=== PATIENT | female | born 1940 | race Caucasian/White ===

== ENCOUNTER 2021-01-19 05:53 | Emergency (ER) | payer MEDICARE, OTHER, SELFPAY ==
--- NOTE | ~2021-01-19 | CT_ITS ---
EXAMINATION: CT abdomen pelvis wo con EXAM DATE: 01/19/2021 06:58 INDICATION: Left flank pain. TECHNIQUE: Spiral CT of the abdomen and pelvis was performed without contrast. Axial, coronal and sag ittal images were reviewed. The dose-length product (DLP) for this examination was 848.12 mGy-cm. T he exposure was tailored according to patient size (auto mA exposure control), and iterative reconstr uction (ASIR) was used as additional dose reduction technique. Prior study from 2009 is not retrievin g at this time. FINDINGS: There is no nephrolithiasis or hydronephrosis. Mild bilateral renal cortical thinning. The uterus is unremarkable. The bladder is unremarkable. The liver, spleen, adrenal glands and pancrea s are unremarkable. Gallbladder is unremarkable. No biliary obstruction. There is no retroperitone al or pelvic lymphadenopathy. There is moderate scattered arteriosclerotic disease. There is mild a neurysmal mid abdominal aorta up to 3.3 cm. Mild ectasia of the common iliac arteries. The appendix is normal. There is mild sigmoid colonic diverticulosis. There is no adjacent inflammat ory change to suggest diverticulitis. There is colonic anastomosis site at the splenic flexure. The stomach and small bowel are unremarkable. There is expected amount of colonic stool. No free intr aperitoneal gas. There is cardiomegaly and pulmonary vascular congestion. Some prominent basilar re ticulation probably mild pulmonary edema. Mild emphysema. There are no pericardial or pleural effusio ns. There are bibasilar linear opacities, subsegmental atelectasis. The bones are unremarkable. IMPRESSION: 1. No nephrolithiasis, hydronephrosis or acute intra-abdominal findings. 2. Mildly aneurysmal abdominal aorta. 3. Cardiomegaly, congestion. Possible mild pulmonary edema. 4. Mild emphysema. Reviewed, dictated and finalized at location A.
[2021-01-19 05:59] VITALS: BP 192/165; PULSE 92; RESP 16; TEMP 36.4; O2SAT 98
--- NOTE | 2021-01-19 06:28 | ED.GENADULT ---
HPI - General Adult General Chief complaint: Abdominal Pain Stated complaint: back/abdominal pain, nausea Time Seen by Provider: 01/19/21 06:19 History of Present Illness HPI narrative: Patient 81-year-old female that presents the emergency department with chief complaint of left flank pain. Patient reports that she has history of kidney stones in the past and started having severe pain in the left flank that radiates to the left lower quadrant. Patient states the pain is sharp reports is not improved by anything reports is worse whenever she gets up and walks around patient reports has had nausea with this reports has had no vomiting denies diarrhea denies fever. Related Data Home Medications Medication Instructions Recorded Confirmed benzonatate 200 mg capsule 200 mg PO TID 02/23/19 09/21/19 acetaminophen 500 mg tablet 500 mg PO Q4H PRN 03/10/19 09/21/19 cholecalciferol (vitamin D3) 1,250 50,000 unit PO WEEKLY 05/19/19 09/21/19 mcg (50,000 unit) tablet meloxicam 15 mg tablet 15 mg PO DAILY PRN 05/19/19 09/21/19 Allergies Allergy/AdvReac Type Severity Reaction Status Date / Time No Known Drug Allergies Allergy Unknown Verified 04/30/19 16:53 Review of Systems Review of Systems: A 10 system review of systems was completed on the patient and is negative except for what is stated in the HPI. Nursing and ancillary documentation was reviewed. [facility] Past Medical History Medical History Acute non-recurrent maxillary sinusitis Chronic right hip pain Contusion of left foot Family History Family History Father Diabetes mellitus Mother Family history of cardiovascular disease, Onset Age: 71 Social History Social History Smoking status: Never smoker Alcohol intake: never Exam Narrative: GENERAL: Well-appearing, well-nourished, and in no acute distress. HEAD: Normocephalic, atraumatic. EYES: PERRLA and EOMI. ENT: Nares clear, no rhinorrhea or epistaxis. Mucous membranes moist. NECK: Supple. CHEST: Clear to auscultation. No respiratory distress. HEART: Regular rate and rhythm. No murmur heard. Normal peripheral pulses. ABDOMEN: Soft, nontender, nondistended, normal active bowel sounds. EXTREMITIES: Normal range of motion. No edema. SKIN: Warm, dry, no rash. NEURO: No focal deficits. Alert and oriented x3. PSYCH: Normal mood and affect. Course Vital Signs Vital signs: Vital Signs Temperature 36.4 C L 01/19/21 05:59 Pulse Rate 92 01/19/21 05:59 Respiratory Rate 16 01/19/21 05:59 Blood Pressure 192/165 H 01/19/21 05:59 Pulse Oximetry 98 01/19/21 05:59 Temperature 36.4 C L 01/19/21 05:59 Pulse Rate 92 01/19/21 05:59 Respiratory Rate 16 01/19/21 05:59 Blood Pressure 192/165 H 01/19/21 05:59 Pulse Oximetry 98 01/19/21 05:59 Medical Decision Making Vital Signs Vital Signs: Vital Signs Temperature 36.4 C L 01/19/21 05:59 Pulse Rate 92 01/19/21 05:59 Respiratory Rate 16 01/19/21 05:59 Blood Pressure 192/165 H 01/19/21 05:59 Pulse Oximetry 98 01/19/21 05:59 Temperature 36.4 C L 01/19/21 05:59 Pulse Rate 92 01/19/21 05:59 Respiratory Rate 16 01/19/21 05:59 Blood Pressure 192/165 H 01/19/21 05:59 Pulse Oximetry 98 01/19/21 05:59 Lab Data Result diagrams: 01/19/21 06:28 01/19/21 06:28 Labs: Lab Results 01/19/21 01/19/21 01/19/21 Range/Units 06:28 06:28 06:28 WBC 8.1 (4.5-10.0) K/mm3 RBC 4.46 (4.2-5.4) M/mm3 Hgb 14.5 (12.0-15.0) g/dL Hct 43.6 (37.0-47.0) % MCV 97.8 (80-100) fl MCH 32.5 (26-34) pg MCHC 33.3 (32-36) g/dl RDW 12.8 (11.5-14.5) % Plt Count 220 (150-375) k/mm3 MPV 12.6 H (7.4-10.4) fl Immature Gran % (Auto) 0.9 H (0-0.5) % Neut
[2021-01-19 06:42] LABS: Basophils Absolute Auto 0.1 K/mm3 (0.0-0.1); Basophils Percent Auto 0.6 % (0.2-1.2); Eosinophils Absolute Auto 0.1 K/mm3 (0-0.3); Eosinophils Percent Auto 1.1 % (0-4.4); Hematocrit 43.6 % (37.0-47.0); Hemoglobin 14.5 g/dL (12.0-15.0); Immature Granulocyte Absolute 0.07 K/mm3 (0.00-0.031); Immature Granulocyte Percent A 0.9 % (0-0.5); Lymphocytes Absolute Auto 1.59 K/mm3 (0.9-3.2); Lymphocytes Percent Auto 19.8 % (18.3-44.2); Mean Corpuscular HGB Conc 33.3 g/dl (32-36); Mean Corpuscular Hemoglobin 32.5 pg (26-34); Mean Corpuscular Volume 97.8 fl (80-100); Mean Platelet Volume 12.6 fl (7.4-10.4); Monocytes Absolute Auto 0.6 K/mm3 (0.1-0.6); Monocytes Percent Auto 7.7 % (2.6-8.5); Neutrophils Absolute Auto 5.6 K/mm3 (1.3-6.7); Neutrophils Percent Auto 69.9 % (45.5-73.1); Platelet Count Result 220 k/mm3 (150-375); Red Blood Count 4.46 M/mm3 (4.2-5.4); Red Cell Distribution Width 12.8 % (11.5-14.5); White Blood Count 8.1 K/mm3 (4.5-10.0)
[2021-01-19 06:50] LABS: Add Urine Microscopic? YES; Appearance Urine Clear (Clear); Bilirubin Urine Negative (Negative); Blood Urine Negative (Negative); Color Urine Colorless (Yellow); Glucose Urine UA 3+ mg/dL (Negative); Ketones Urine Negative (Negative); Leukocyte Esterase Ur Negative LEU/UL (Negative); Mucus Urine Rare /lpf; Nitrate Urine Negative (Negative); Protein Urine 2+ mg/dL (Negative); RBC Urine 0-2 /hpf (0-2); Urobilinogen Urine Negative mg/dL (<2.0); WBC Urine 0-3 /hpf
[2021-01-19 06:52] LABS: Lipase 124 U/L (23-300)
[2021-01-19 06:55] LABS: Alanine Aminotransferase 21 U/L (4-35); Albumin Level 4.9 g/dL (3.5-5.1); Alkaline Phosphatase 80 U/L (38-126); Anion Gap 10 mmol/L (8-16); Aspartate Amino Transferase 30 U/L (14-36); Bilirubin,Total 0.8 mg/dL (0.2-1.3); Blood Urea Nitrogen 16 mg/dL (7-17); Calcium 9.4 mg/dL (8.4-10.2); Carbon Dioxide 27 mmol/L (22-30); Chloride 100 mmol/L (98-107); Estimated CRCL calculation 71 ml/min; Estimated Glomerular Filt Rate > 60; Glucose 212 mg/dL (65-110); Potassium 4.1 mmol/L (3.4-5.0); Sodium 137 mmol/L (137-145)
[2021-01-19] MEDS: ONDANSETRON INJ 4 MG/2 ML VIAL IV PUSH (07:13)
[2021-01-19] MEDS: SODIUM CHLORIDE 0.9% IV 1,000 ML 999 ML IV CONT (07:13)
== END 2021-01-19 09:00 | disposition home or self-care (01) ==
PROVIDERS: Emergency Provider Emergency Medicine; PCP Family Medicine
DX: M54.32 Sciatica, left side (principal); I71.4 Abdominal aortic aneurysm, without rupture
CPT/HCPCS: 36415; 74176; 80053; 81001; 83690; 85025; 96365; 96375; 99284; J0131; J2405; J7030

== ENCOUNTER → 2022-04-06 12:45 | Outpatient (CLI) | payer MEDICARE, OTHER, SELFPAY ==
--- NOTE | ~2022-04-06 | CT_ITS ---
EXAMINATION: CT lumbar spine wo con DATE: 04/06/2022 13:07 INDICATION: Right-sided sciatica. Chronic low back pain. TECHNIQUE: Computed tomography (CT) of the lumbar spine was performed without intravenous contrast. A utomated exposure control and iterative reconstruction technique were employed. The dose-length produ ct was 790.87 mGy-cm. COMPARISON: None FINDINGS: There is a 3.4 cm fusiform aneurysm of infrarenal aorta. There is 10 degrees levoscoliosis of lumbar spine. There is 2 mm anterolisthesis of L4 on L5. Vertebral body heights are normal. There is moderately decreased disc height at T12-L1 and L1-L2, severely decreased disc height at L2-L3, mil dly decreased disc height at L3-L4, and severely decreased disc height at L4-L5 and L5-S1. There is B aastrup disease at L3-L4. The following disc levels are specifically discussed: L1-L2: The disc is bulging. There is mild bilateral facet joint osteoarthritis. There is mild bilater al neural foraminal stenosis. There is mild central canal stenosis. L2-L3: The disc is bulging. There is mild bilateral facet joint osteoarthritis. There is mild bilater al neural foraminal stenosis. There is mild central canal stenosis. L3-L4: The disc is bulging. There is mild bilateral facet joint osteoarthritis. There is mild bilater al neural foraminal stenosis. There is mild central canal stenosis. L4-L5: The disc is bulging. There is severe bilateral facet joint osteoarthritis. There is mild bilat eral neural foraminal stenosis. There is mild central canal stenosis. L5-S1: The disc is bulging. There is severe bilateral facet joint osteoarthritis. There is mild bilat eral neural foraminal stenosis. There is mild central canal stenosis. IMPRESSION: 1. Severe lumbar spondylosis. 2. Lumbar levoscoliosis. 3. 3.4 cm fusiform aneurysm of infrarenal aorta. Reviewed, dictated and finalized at location A. [employer]
== END ==
PROVIDERS: PCP Family Medicine; Visit Provider Family Medicine
DX: G89.29 Other chronic pain (principal); M54.41 Lumbago with sciatica, right side; I71.40 Abdominal aortic aneurysm, without rupture, unspecified; I71.43 Infrarenal abdominal aortic aneurysm, without rupture
CPT/HCPCS: 72131